=== PATIENT | female | born 1990 | race American Indian/Alaskan Native ===

== ENCOUNTER 2017-11-04 15:39 | Emergency (ER) | payer MEDICAID ==
--- NOTE | 2017-11-04 16:30 | C.PDOC ---
History Of Present Illness 27-year-old female comes in for evaluation of vaginal bleeding and lower abdominal cramping starting this morning. LMP was 10/02/17. Patient admits she was seen at [facility] [place] prior to arrival and had blood work and pelvic exam, diagnosis was threatened . Patient is here now requesting ultrasound. Otherwise denies any nausea, vomiting, dysuria, vaginal discharge, back pain, chest pain, SOB, fever, or other complaints. Time Seen by Provider: 11/04/17 16:11 Chief Complaint (Nursing): Abdominal Pain History Per: Patient History/Exam Limitations: no limitations Onset/Duration Of Symptoms: Hrs Current Symptoms Are (Timing): Still Present Quality Of Discomfort: Cramping Abnormal Vaginal Bleeding: Yes Last Menstral Period: 10/02/17 : 1 Para: 0 Past Medical History Reviewed: Historical Data, Nursing Documentation, Vital Signs Vital Signs: Last Vital Signs Temp 98.1 F 11/04/17 15:49 Pulse 85 11/04/17 15:49 Resp 18 11/04/17 15:49 BP 115/79 11/04/17 15:49 Pulse Ox 99 11/04/17 18:36 - Medical History PMH: No Chronic Diseases Surgical History: No Surg Hx Family History: States: No Known Family Hx - Social History Hx Tobacco Use: No Hx Alcohol Use: No Hx Substance Use: No - Immunization History Hx Tetanus Toxoid Vaccination: No Hx Influenza Vaccination: No Hx Pneumococcal Vaccination: No Review Of Systems Except As Marked, All Systems Reviewed And Found Negative. Constitutional: Negative for: Fever, Chills Gastrointestinal: Positive for: Abdominal Pain. Negative for: Nausea, Vomiting Genitourinary: Positive for: Vaginal Bleeding. Negative for: Dysuria, Vaginal Discharge Musculoskeletal: Negative for: Back Pain Physical Exam - Physical Exam Appears: Well, Non-toxic, No Acute Distress Skin: Normal Color, Warm, No Rash, No Ecchymosis Head: Atraumatic, Normacephalic Eye(s): bilateral: PERRL Oral Mucosa: Moist Neck: Trachea Midline, No Midline Cervical Tenderness, No Paracervical Tenderness, Supple Chest: Symmetrical, No Deformity, No Tenderness Cardiovascular: Rhythm Regular Respiratory: No Decreased Breath Sounds, No Accessory Muscle Use, No Wheezing Gastrointestinal/Abdominal: Soft, No Tenderness, No Distention, No Guarding Extremity: Bilateral: Atraumatic, Normal Color And Temperature, Normal ROM Pulses: Left Dorsalis Pedis: Normal, Right Dorsalis Pedis: Normal Neurological/Psych: Oriented x3, Normal Speech, Normal Cranial Nerves ED Course And Treatment - Laboratory Results Result Diagrams: 11/04/17 17:05 O2 Sat by Pulse Oximetry: 99 (RA) Pulse Ox Interpretation: Normal - CT Scan/US Transvaginal US Other Rad Studies (CT/US): Read By Radiologist, Radiology Report Reviewed CT/US Interpretation: Accession No. : [id number]. Patient Name / ID : TERRELL MORIN / [id number]. Exam Date : 11/04/2017 16:59:10 ( Approved ). Study Comment : Sex / Age : F / [id number]. Creator : Alberto Arboleda MD. Dictator : Alberto Arboleda MD. [employer] : Manager Rental : Alberto Arboleda MD. Approver2 : Report Date : 11/04/2017 17:44:48. My Comment : . Date of service: 11/04/2017. HISTORY: vaginal bleeding, pain. Positive urine HCG. Serum beta HCG level pending. LMP: 10/01/2017. COMPARISON: None available. TECHNIQUE: Grayscale, color Doppler and spectral evaluation the pelvis performed transvaginally. FINDINGS: UTERUS: Measures 7.9 x 4.4 x 4.1 cm. Retroverted. Normal in size and appearance. No fibroid or other mass lesion seen. ENDOMETRIUM: Measures 15 mm in diameter. Unremarkable. CERVIX: No cervical abnormality identified. RIGHT OVARY: Measures 5.2 x 4.2 x 5.0 cm. Simple cyst measuring 4.2 x 3.2 x 3.8 cm. Normal flow. LEFT OVARY: Measures 3.1 x 2.3 x 3.5 cm. 2.5 x 1.7 x 1.7 cm echogenic area within the left ovary. Normal flow. FREE FLUID: Complex free fluid in the cul-de-sac and bilateral adnexas. OTHER FINDINGS: None. IMPRESSION: No intrauterine gestational sac. Nonspecific 2.5 cm echogenic area within the left ovary may represent a corpus luteum. Findings may represent early normal/ abnormal with ectopic not excluded. Close clinical follow-up with serial pelvic sonography and serum beta HCG levels is recommended. Complex free fluid in the cul-de-sac and bilateral adnexas may be related to ruptured cyst, and less likely ruptured ectopic . Clinical correlation is recommended. Progress Note: Routine blood work and UA ordered and reviewed. Transvaginal US performed, and results discussed w/ patient. Disposition Counseled Patient/Family Regarding: Studies Performed, Diagnosis, Need For Followup, Rx Given - Disposition [facility] Disposition: HOME/ ROUTINE Disposition Time: 18:36 Condition: STABLE Additional Instructions: LIght duty, avoid heavy lifting, sexual activity for 1 week Follow up with OB or ED in 3-4 days to repeat beta quant return to ED at any time if any worsening or new changes. Instructions: Threatened Miscarriage Forms: [employer] (Irish) - Clinical Impression Clinical Impression: Threatened - PA / ORGANIZATIONAL DEVELOPMENT MANAGER / Resident Statement MD/DO has reviewed & agrees with the documentation as recorded. - Scribe Statement The provider has reviewed the documentation as recorded by the Scribe (Flaquita Mckenna) All medical record entries made by the Scribe were at my direction and personally dictated by me. I have reviewed the chart and agree that the record accurately reflects my personal performance of the history, physical exam, medical decision making, and the department course for this patient. I have also personally directed, reviewed, and agree with the discharge instructions and disposition.
[2017-11-04 17:11] LABS: BASO % 0.5 % (0.0-2.0); EOS # 0.1 K/uL (0.0-0.7); HEMOGLOBIN 11.7 g/dL (11.0-16.0); LYMPH # 2.4 K/uL (1.0-4.3); LYMPH % 33.1 % (20.0-40.0); MEAN CELL VOLUME 89.5 fL (81.0-99.0); MEAN CORPUSCULAR HEMOGLOBIN 30.3 pg (27.0-31.0); MEAN CORPUSCULAR HGB CONC 33.8 g/dL (33.0-37.0); MEAN PLATELET VOLUME 7.9 fL (7.2-11.7); MONO # 0.5 K/uL (0.0-0.8); MONO % 7.4 % (0.0-10.0); NEUT # 4.2 K/uL (1.8-7.0); RBC 3.86 Mil/uL (3.80-5.20); RED CELL DISTRIBUTION WIDTH 12.1 % (11.5-14.5); WHITE BLOOD COUNT 7.2 K/uL (4.8-10.8)
[2017-11-04 17:16] LABS: HCG,QUALITATIVE URINE POSITIVE (NEGATIVE)
[2017-11-04 17:19] LABS: SQUAMOUS EPITHIAL 2 /hpf (0-5); URINE BILIRUBIN NEGATIVE (NEGATIVE); URINE BLOOD 3+ (NEGATIVE); URINE CLARITY Clear (Clear); URINE COLOR Yellow (YELLOW); URINE GLUCOSE (UA) NORMAL (Normal); URINE LEUKOCYTE ESTERASE NEG Leu/uL (Negative); URINE PROTEIN NEGATIVE (NEGATIVE); URINE UROBILINOGEN NORMAL mg/dL (0.2-1.0)
--- NOTE | 2017-11-04 17:47 | US ---
Date of service: 11/04/2017 HISTORY: vaginal bleeding, pain Positive urine HCG. Serum beta HCG level pending LMP: 10/01/2017 COMPARISON: None available. TECHNIQUE: Grayscale, color Doppler and spectral evaluation the pelvis performed transvaginally. FINDINGS: UTERUS: Measures 7.9 x 4.4 x 4.1 cm. Retroverted. Normal in size and appearance. No fibroid or other mass lesion seen. ENDOMETRIUM: Measures 15 mm in diameter. Unremarkable. CERVIX: No cervical abnormality identified. RIGHT OVARY: Measures 5.2 x 4.2 x 5.0 cm. Simple cyst measuring 4.2 x 3.2 x 3.8 cm. Normal flow. LEFT OVARY: Measures 3.1 x 2.3 x 3.5 cm. 2.5 x 1.7 x 1.7 cm echogenic area within the left ovary. Normal flow. FREE FLUID: Complex free fluid in the cul-de-sac and bilateral adnexas. OTHER FINDINGS: None. IMPRESSION: No intrauterine gestational sac. Nonspecific 2.5 cm echogenic area within the left ovary may represent a corpus luteum. Findings may represent early normal/ abnormal with ectopic not excluded. Close clinical follow-up with serial pelvic sonography and serum beta HCG levels is recommended. Complex free fluid in the cul-de-sac and bilateral adnexas may be related to ruptured cyst, and less likely ruptured ectopic . Clinical correlation is recommended.
[2017-11-04 18:48] VITALS: BP 95/66; PULSE 74; RESP 20; TEMP 98.9; O2SAT 96
== END 2017-11-04 18:49 | disposition home or self-care (01) ==
LOC: C.ER 15:39
DX: O20.0 Threatened abortion (principal); Z3A.00 Weeks of gestation of pregnancy not specified